=== PATIENT | male | born 1975 | race Caucasian/White ===

== ENCOUNTER 2024-01-22 16:02 | Inpatient (IN) | payer OTHER, MEDICAID ==
[~2024-01-22] VITALS: Ht 188 cm; Wt 94.3 kg
[2024-01-22 16:11] VITALS: O2SAT 98
[2024-01-22] MEDS: OXYCODONE HCL/ACETAMINOPHEN 5/325MG TABLET PO ONE (18:09)
[2024-01-22] MEDS: IBUPROFEN 600MG TABLET PO ONE (18:09)
[2024-01-22 19:21] LABS: BASOPHILS % 1.2 % (0.0-2.0); CHLORIDE 104 mEq/L (98-107); DIFFERENTIAL COMMENT 0; EOSINOPHILS % 1.5 % (0.0-5.0); HEMATOCRIT. 45.8 % (42.0-52.0); HEMOGLOBIN. 15.4 g/dL (14.0-18.0); LYMPHOCYTES % 28.1 % (20.0-50.0); MEAN CORPUSCULAR HEMOGLOBIN 35.1 pg (28.0-32.0); MEAN CORPUSCULAR HGB CONC 33.6 g/dL (31.0-37.0); MEAN CORPUSCULAR VOLUME 104.6 fL (80.0-94.0); MEAN PLATELET VOLUME 8.9 fl (7.4-10.4); MONOCYTES % 8.2 % (2.0-8.0); PLATELET 257 x1000/uL (130-400); RED BLOOD CELL COUNT 4.38 mill/uL (4.7-6.1); RED CELL DISTRIBUTION WIDTH 12.2 % (11.6-14.6); SODIUM 138 mEq/L (136-145)
[2024-01-22 19:22] LABS: CARBON DIOXIDE 28 mEq/L (21-32)
[2024-01-22 19:23] LABS: CALCIUM 9.2 mg/dL (8.7-10.4)
[2024-01-22 19:25] LABS: PROTHROMBIN TIME 11.1 sec (9.6-11.0)
[2024-01-22] MEDS: MORPHINE SULFATE 4 MG/ML INJ (FOR IV/IM USE) IV STA (19:26)
[2024-01-22] MEDS: ONDANSETRON HCL 4MG/2ML INJ IV STA (19:26)
[2024-01-22 19:27] LABS: CREATININE 0.7 mg/dL (0.6-1.3); GLUCOSE 94 mg/dL (70-105); UREA NITROGEN BLOOD 11 mg/dL (9-23)
[2024-01-22 22:47] VITALS: BP 128/82; PULSE 66; RESP 18; TEMP 36.418
[2024-01-23] MEDS ORDERED: ZOLPIDEM TARTRATE 5MG TABLET PO PRN (00:15)
[2024-01-23] MEDS ORDERED: ONDANSETRON HCL 4MG/2ML INJ IV PRN (00:15)
[2024-01-23] MEDS ORDERED: CLONIDINE 0.1MG TABLET PO PRN (00:15)
[2024-01-23] MEDS ORDERED: NALOXONE HCL 0.4MG/ML VIAL IV PRN (00:30)
[2024-01-23] MEDS: HYDROCODONE/ACETAMINOPHEN 5/325MG TABLET PO PRN (03:10)
[2024-01-23 04:00] VITALS: BP_SYST 120; BP_SYST 136; BP_DIAS 57; BP_DIAS 76; PULSE 67; PULSE 75; RESP 18; TEMP 36.114; TEMP 36.28068; O2SAT 95; O2SAT 98
[2024-01-23 04:01] VITALS: BP 136/76; PULSE 67; RESP 18; TEMP 36.114; O2SAT 95
[2024-01-23 08:00] VITALS: BP 133/86; PULSE 71; RESP 20; TEMP 36.28068; O2SAT 97
[2024-01-23] MEDS: ENOXAPARIN 40MG/0.4ML SYR SUBCUT SCH (08:50)
[2024-01-23 10:14] LABS: CLARITY URINE CLEAR (CLEAR); COLOR URINE DARK YELLOW (YELLOW); GLUCOSE URINE NEGATIVE (NEGATIVE); KETONES URINE NEGATIVE (NEGATIVE); LEUKOCYTE ESTERASE URINE TRACE (NEGATIVE); NITRITE URINE NEGATIVE (NEGATIVE); OCCULT BLOOD URINE NEGATIVE (NEGATIVE); PROTEIN URINE NEGATIVE (NEGATIVE); SPECIFIC GRAVITY URINE 1.025 (1.005-1.030)
[2024-01-23 10:29] LABS: *AMPHETAMINES SCREEN URINE PRESUMPTIVE POSITIVE (NEGATIVE); *BARBITURATES SCREEN URINE NEGATIVE (NEGATIVE); *BENZODIAZEPINES SCREEN URINE NEGATIVE (NEGATIVE); *COCAINE SCREEN URINE NEGATIVE (NEGATIVE); CANNABINOID URINE SCREEN PRESUMPTIVE POSITIVE (NEGATIVE); ECSTASY MDMA SCREEN URINE NEGATIVE (NEGATIVE); METHADONE URINE SCREEN NEGATIVE (NEGATIVE); OPIATES URINE SCREEN PRESUMPTIVE POSITIVE (NEGATIVE); PHENCYCLIDINE URINE SCREEN NEGATIVE (NEGATIVE)
[2024-01-23 10:40] LABS: MUCUS URINE 2+ /lpf (NONE/TRACE)
[2024-01-23 10:41] LABS: RBC URINE NONE SEEN /hpf (0-2); SQUAMOUS EPITHELIAL CELL URINE 1+ /lpf (RARE/1+); WBC URINE 0-2 /hpf (0-2)
[2024-01-23 10:42] LABS: BACTERIA URINE TRACE
[2024-01-23 12:00] VITALS: BP 122/88; PULSE 64; RESP 20; TEMP 36.28068; O2SAT 98
[2024-01-23 16:00] VITALS: BP 103/72; PULSE 78; RESP 20; TEMP 36.72516; O2SAT 98
[2024-01-23 20:00] VITALS: BP 121/83; PULSE 78; RESP 18; TEMP 36.78072; O2SAT 99
[2024-01-23] MEDS: ENOXAPARIN 30MG/0.3ML SYR SUBCUT SCH (21:37)
[2024-01-24] VITALS: BP 124/77; PULSE 78; RESP 18; TEMP 36.55848; O2SAT 98
[2024-01-24 04:00] VITALS: BP 132/79; PULSE 87; RESP 18; TEMP 36.89184; O2SAT 99
[2024-01-24 09:35] LABS: BASOPHILS % 1.7 % (0.0-2.0); DIFFERENTIAL COMMENT 0; EOSINOPHILS % 1.9 % (0.0-5.0); HEMATOCRIT. 47.8 % (42.0-52.0); HEMOGLOBIN. 16.3 g/dL (14.0-18.0); LYMPHOCYTES % 24.9 % (20.0-50.0); MEAN CORPUSCULAR HEMOGLOBIN 35.4 pg (28.0-32.0); MEAN CORPUSCULAR HGB CONC 34.2 g/dL (31.0-37.0); MEAN CORPUSCULAR VOLUME 103.5 fL (80.0-94.0); MEAN PLATELET VOLUME 9.1 fl (7.4-10.4); MONOCYTES % 10.3 % (2.0-8.0); NEUTROPHILS % 61.2 % (40.0-76.0); PLATELET 267 x1000/uL (130-400); RED BLOOD CELL COUNT 4.62 mill/uL (4.7-6.1); RED CELL DISTRIBUTION WIDTH 12.2 % (11.6-14.6); WHITE BLOOD COUNT 6.8 x1000/uL (4.5-11.0)
[2024-01-24 09:40] LABS: CHLORIDE 103 mEq/L (98-107); POTASSIUM 4.3 mEq/L (3.5-5.1); SODIUM 136 mEq/L (136-145)
[2024-01-24 09:41] LABS: CALCIUM 9.3 mg/dL (8.7-10.4); CARBON DIOXIDE 27 mEq/L (21-32)
[2024-01-24 09:46] LABS: CREATININE 0.7 mg/dL (0.6-1.3); GLUCOSE 93 mg/dL (70-105); UREA NITROGEN BLOOD 11 mg/dL (9-23)
[2024-01-24] MEDS: ACETAMINOPHEN 325MG TABLET PO PRN (15:54)
[2024-01-24 20:00] VITALS: BP 114/57; PULSE 91; RESP 18; TEMP 36.50292; O2SAT 98
[2024-01-25] VITALS: BP 115/83; PULSE 84; RESP 18; TEMP 36.6696; O2SAT 97
[2024-01-25 04:00] VITALS: BP 122/80; PULSE 89; RESP 18; TEMP 36.61404; O2SAT 97
[2024-01-25 10:54] VITALS: BP 119/78; PULSE 84; RESP 20; TEMP 36.6696; O2SAT 100
[2024-01-25 20:00] VITALS: BP 116/78; PULSE 98; RESP 18; TEMP 36.89184; O2SAT 97
[2024-01-26] VITALS: BP 103/62; PULSE 89; RESP 18; TEMP 36.72516; O2SAT 99
[2024-01-26 04:00] VITALS: BP 128/73; PULSE 91; RESP 18; TEMP 36.61404; O2SAT 98
[2024-01-26 09:01] VITALS: BP 142/72; PULSE 82; RESP 20; TEMP 36.114; O2SAT 100
[2024-01-26 12:00] VITALS: BP 123/77; PULSE 82; RESP 20; TEMP 36.28068; O2SAT 96
[2024-01-26 20:00] VITALS: BP 110/76; PULSE 93; RESP 17; TEMP 36.61404; O2SAT 96
[2024-01-27] VITALS: BP 122/73; PULSE 91; RESP 18; TEMP 36.61404; O2SAT 92
[2024-01-27 04:00] VITALS: BP 134/83; PULSE 75; RESP 18; TEMP 36.78072; O2SAT 97
[2024-01-27 08:00] VITALS: BP 105/75; PULSE 95; RESP 18; TEMP 36.114; O2SAT 98
[2024-01-27 12:00] VITALS: BP 104/68; PULSE 92; RESP 18; TEMP 36.114; O2SAT 100
[2024-01-27 16:00] VITALS: BP 105/72; PULSE 92; RESP 18; TEMP 36.22512; O2SAT 100
[2024-01-27 20:00] VITALS: BP 122/79; PULSE 86; RESP 16; TEMP 36.55848; O2SAT 99
[2024-01-28] VITALS: BP 104/63; PULSE 89; RESP 16; TEMP 36.55848; O2SAT 96
[2024-01-28 04:00] VITALS: BP 120/60; PULSE 73; RESP 16; TEMP 36.3918; O2SAT 95
[2024-01-28 08:00] VITALS: BP 115/86; PULSE 91; RESP 19; TEMP 36.61404; O2SAT 98
[2024-01-28 12:00] VITALS: BP 122/79; PULSE 88; RESP 18; TEMP 36.61404; O2SAT 97
[2024-01-28] MEDS ORDERED: IBUP-2030 MT (16:24)
[2024-01-28] MEDS ORDERED: TOPUD PO (16:24)
[2024-01-28] MEDS ORDERED: CLON0.1T PO (16:24)
[2024-01-28 20:00] VITALS: BP 105/65; PULSE 93; RESP 20; TEMP 35.8362; O2SAT 95
[2024-01-29] VITALS: BP 97/69; PULSE 85; RESP 20; TEMP 36.72516; O2SAT 100
[2024-01-29 04:00] VITALS: BP_SYST 117; BP_DIAS 58; BP_DIAS 78; PULSE 88; RESP 20; TEMP 36.50292; O2SAT 96
[2024-01-29 08:00] VITALS: BP 118/75; PULSE 87; RESP 18; TEMP 36.72516; O2SAT 98
[2024-01-29 12:00] VITALS: BP 118/84; PULSE 89; RESP 18; TEMP 36.6696; O2SAT 96
[2024-01-29 16:00] VITALS: BP 121/84; PULSE 85; RESP 18; TEMP 36.6696; O2SAT 100
[2024-01-29 20:00] VITALS: BP 126/86; PULSE 88; RESP 17; TEMP 36.3918; O2SAT 99
[2024-01-30] VITALS: BP 113/84; PULSE 83; RESP 20; TEMP 36.3918; O2SAT 99
[2024-01-30 04:00] VITALS: BP 113/83; PULSE 91; RESP 20; TEMP 36.114; O2SAT 99
[2024-01-30 08:00] VITALS: BP 109/75; PULSE 96; RESP 20; TEMP 36.50292; O2SAT 99
[2024-01-30 12:00] VITALS: BP 124/80; PULSE 81; RESP 20; TEMP 36.61404; O2SAT 97
[2024-01-30 16:00] VITALS: BP 127/77; PULSE 83; RESP 22; TEMP 36.61404; O2SAT 97
[2024-01-30 20:00] VITALS: BP 121/89; PULSE 102; RESP 20; TEMP 36.83628; O2SAT 98
[2024-01-31] VITALS: BP 113/68; PULSE 103; RESP 18; TEMP 36.72516; O2SAT 96
[2024-01-31 04:00] VITALS: BP 112/80; PULSE 82; RESP 20; TEMP 36.72516; O2SAT 97
[2024-01-31] MEDS: ENOXAPARIN 40MG/0.4ML SYR SUBCUT SCH (09:43)
[2024-01-31 20:00] VITALS: BP 115/75; PULSE 82; RESP 18; TEMP 36.3918; O2SAT 96
[2024-02-01] VITALS: BP 117/63; PULSE 85; RESP 20; TEMP 36.83628; O2SAT 97
[2024-02-01 04:00] VITALS: BP 98/57; PULSE 81; RESP 20; TEMP 36.72516; O2SAT 97
[2024-02-01 08:00] VITALS: BP 122/79; PULSE 81; RESP 20; TEMP 36.6696; O2SAT 100
[2024-02-01 12:00] VITALS: BP 109/78; PULSE 61; RESP 20; TEMP 37.00296; O2SAT 100
[2024-02-01 16:00] VITALS: BP 103/66; PULSE 70; RESP 20; TEMP 36.6696; O2SAT 100
[2024-02-01 20:00] VITALS: BP 137/82; PULSE 70; RESP 18; TEMP 36.78072; O2SAT 98
[2024-02-02] VITALS: BP 113/53; PULSE 113; RESP 18; TEMP 36.6696; O2SAT 98
[2024-02-02 08:00] VITALS: BP 121/74; PULSE 89; RESP 20; TEMP 36.50292; O2SAT 98
[2024-02-02 15:48] VITALS: BP 109/68; PULSE 80; RESP 20; TEMP 37.2252; O2SAT 95
[2024-02-02 20:00] VITALS: BP 125/76; PULSE 67; RESP 20; TEMP 36.33624
[2024-02-03 04:00] VITALS: BP 124/64; PULSE 90; RESP 20; TEMP 36.16956; O2SAT 95
[2024-02-03 08:00] VITALS: BP 117/81; PULSE 89; RESP 19; TEMP 36.28068; O2SAT 99
[2024-02-03 12:00] VITALS: BP 125/85; PULSE 88; RESP 19; TEMP 36.3918; O2SAT 99
[2024-02-03 16:00] VITALS: BP_SYST 118; BP_SYST 123; BP_DIAS 75; BP_DIAS 79; PULSE 75; PULSE 90; RESP 18; TEMP 36.28068; TEMP 36.50292; O2SAT 100; O2SAT 99
[2024-02-03 20:00] VITALS: BP 129/90; PULSE 84; RESP 18; TEMP 36.78072; O2SAT 96
[2024-02-04 04:00] VITALS: BP 143/80; PULSE 94; RESP 19; TEMP 36.61404; O2SAT 100
[2024-02-04 08:00] VITALS: BP 132/75; PULSE 78; RESP 18; TEMP 36.28068; O2SAT 100
[2024-02-04 12:00] VITALS: BP 130/72; PULSE 75; RESP 18; TEMP 36.6696; O2SAT 99
[2024-02-04 16:00] VITALS: BP 127/82; PULSE 72; RESP 19; TEMP 36.3918; O2SAT 98
[2024-02-04 20:00] VITALS: BP 148/75; PULSE 82; RESP 18; TEMP 36.83628; O2SAT 100
[2024-02-05] VITALS: BP 140/68; PULSE 80; RESP 19; TEMP 37.00296; O2SAT 99
[2024-02-05 04:00] VITALS: BP 132/76; PULSE 80; RESP 17; TEMP 36.6696; O2SAT 99
[2024-02-05 08:00] VITALS: BP 119/62; PULSE 71; RESP 18; TEMP 36.114; O2SAT 99
[2024-02-05 12:00] VITALS: BP 125/75; PULSE 75; RESP 19; TEMP 36.22512; O2SAT 98
[2024-02-05 12:06] VITALS: BP 119/62; PULSE 71; TEMP 97
== END 2024-02-05 16:50 | DRG 556 ==
LOC: ER 16:02 → 6WST 20:03 → EEVIPCON 20:03 → EDBEDREQTM 20:22 → EDBEDREQ 20:22 → ER 22:22 → 6WST 01-23 23:56
PROVIDERS: ADMIT Internal Medicine; ATTEND Internal Medicine
DX: M25.552 Pain in left hip (principal); M87.9 Osteonecrosis, unspecified; R26.2 Difficulty in walking, not elsewhere classified
CPT/HCPCS: 36415; 72170; 72192; 80048; 80305; 81003; 82962; 85025; 86850; 86900; 97162; 99285; J1650; J2270; J2405